=== PATIENT | female | born 1990 | race Caucasian/White ===

== ENCOUNTER 2020-10-21 09:45 | Inpatient (IN) ==
[2020-10-21] MEDS: Lactated Ringers 1000 ml BAG 1,000 ML IV SCH ×2 (10:13→10:47)
[2020-10-21] MEDS ORDERED: Buffered Lidocaine 1% SYRIN 1 ml INTRADERM ONE (10:31)
[2020-10-21 10:42] LABS: ABS Basophils 0.1 10^3/ul (0-0.2); ABS Eosinophils 0.4 10^3/ul (0-0.6); ABS Lymphocytes 2.2 10^3/ul (1.0-4.8); ABS Monocytes 0.7 10^3/ul (0-0.8); ABS Neutrophils 9.1 10^3/ul (1.5-7.7); Eosinophil % 3.1 %; Hematocrit 41 % (35-47); Hemoglobin 14.4 g/dL (12.0-16.0); Lymphocyte % 17.3 %; Mean Corpuscular HGB Conc 35 g/dL (31-36); Mean Corpuscular Hemoglobin 34 pg (27-31); Mean Corpuscular Volume 96 fL (80-97); Mean Platelet Volume 11.1 fL (7.4-10.4); Platelet Count 170 10^3/uL (150-450); Red Cell Distribution Width 13 % (10-15); White Blood Count 12.5 10^3/uL (3.5-10.8)
[2020-10-21 10:58] LABS: Albumin 3.6 g/dL (3.2-5.2); Calcium 9.2 mg/dL (8.6-10.3); EGFR African American 148.7 (>60); EGFR Non-African American 122.9 (>60); Globulin 3.6 g/dL (2-4); Total Bilirubin 0.4 mg/dL (0.2-1.0); Total Protein 7.2 g/dL (6.4-8.9)
[2020-10-21] MEDS ORDERED: OBEPIDURAL 250 ML EPIDURAL ONE (10:59)
[2020-10-21] MEDS ORDERED: Penicillin G Potassium IV 5,000,000 UNITS in NS 0.9% 100 ml BAG 100 ML IVPB ONE (11:00)
[2020-10-21] MEDS ORDERED: Penicillin G Potassium IV 3,000,000 UNITS in NS 0.9% 100 ml BAG 100 ML IVPB SCH ×2 (11:00→14:30)
[2020-10-21] MEDS ORDERED: Oxytocin in LR 20 UNITS/1,000 ML BAG IVPB ONE (11:59)
[2020-10-21 12:53] LABS: Urine Benzodiazepine Screen None Detected (None Detect); Urine Cannabinoids Screen None Detected (None Detect); Urine Opiates Screen None Detected (None Detect)
[2020-10-21] MEDS ORDERED: Lactated Ringers 1000 ml BAG 1,000 ML IV SCH (13:00)
[2020-10-21] MEDS ORDERED: Oxytocin in LR 20 UNITS/1,000 ML BAG IVPB SCH (13:00)
[2020-10-21] MEDS: Witch Hazel PAD JAR TOPICAL PRN (13:34)
[2020-10-21] MEDS: Dibucaine 1% OINT 28.35 GM TUBE PR PRN (13:34)
[2020-10-21] MEDS ORDERED: Lidocaine 1% VIAL 10 MG/ML VIAL ONE (15:09)
[2020-10-22 08:20] LABS: ABS Basophils 0.1 10^3/ul (0-0.2); ABS Eosinophils 0.3 10^3/ul (0-0.6); ABS Lymphocytes 2.8 10^3/ul (1.0-4.8); ABS Monocytes 0.8 10^3/ul (0-0.8); ABS Neutrophils 9.9 10^3/ul (1.5-7.7); Eosinophil % 2.2 %; Hematocrit 36 % (35-47); Hemoglobin 12.3 g/dL (12.0-16.0); Lymphocyte % 20.1 %; Mean Corpuscular HGB Conc 34 g/dL (31-36); Mean Corpuscular Hemoglobin 33 pg (27-31); Mean Corpuscular Volume 97 fL (80-97); Mean Platelet Volume 10.6 fL (7.4-10.4); Platelet Count 152 10^3/uL (150-450); Red Blood Count 3.68 10^6 /uL (3.70-4.87); Red Cell Distribution Width 13 % (10-15); White Blood Count 13.9 10^3/uL (3.5-10.8)
[2020-10-22] MEDS ORDERED: Measles, Mumps,Rubella VACC 0.5 ML/VIAL SUBCUT ONE (09:00)
[2020-10-22] MEDS: Witch Hazel PAD JAR TOPICAL PRN (17:00)
[2020-10-22] MEDS: Dibucaine 1% OINT 28.35 GM TUBE PR PRN (17:00)
[2020-10-23 08:53] VITALS: BP 130/95
== END 2020-10-23 12:30 | disposition home or self-care (01) | DRG 560 ==
LOC: MCHOBOUT 09:45 → MCHOB 10:03
PROVIDERS: ADMIT Midwife; ATTEND Midwife

== ENCOUNTER 2022-05-23 19:28 | Inpatient (IN) ==
[2022-05-23] MEDS ORDERED: Buffered Lidocaine 1% SYRIN 1 ml INTRADERM ONE (20:34)
[2022-05-23] MEDS ORDERED: Nalbuphine 10 MG/ML 1 ML VIAL IV PRN (20:34)
[2022-05-23] MEDS ORDERED: Lactated Ringers 1000 ml BAG 1,000 ML IV ONE (20:34)
[2022-05-23] MEDS ORDERED: Promethazine INJ(RESTRICTED) 25 MG/ML 1 ml VIAL IV PRN (20:34)
[2022-05-23] MEDS ORDERED: Oxytocin in LR 20,000 MILLI.UNIT/1,000 ML BAG IV SCH (20:45)
[2022-05-23] MEDS ORDERED: Lactated Ringers 1000 ml BAG 1,000 ML IV SCH (21:00)
[2022-05-23 21:18] LABS: ABS Eosinophils 0.4 10^3/ul (0-0.6); ABS Lymphocytes 2.6 10^3/ul (1.0-4.8); ABS Monocytes 0.7 10^3/ul (0-0.8); Eosinophil % 3.4 %; Hematocrit 37 % (35-47); Hemoglobin 13.2 g/dL (12.0-16.0); Lymphocyte % 24.3 %; Mean Corpuscular HGB Conc 35 g/dL (31-36); Mean Corpuscular Hemoglobin 33 pg (27-31); Mean Corpuscular Volume 93 fL (80-97); Mean Platelet Volume 10.1 fL (7.4-10.4); Platelet Count 191 10^3/uL (150-450); Red Blood Count 4.03 10^6 /uL (3.70-4.87); Red Cell Distribution Width 14 % (10-15); White Blood Count 10.8 10^3/uL (3.5-10.8)
[2022-05-23 21:40] LABS: Urine Benzodiazepine Screen None Detected (None Detect); Urine Opiates Screen None Detected (None Detect)
[2022-05-23] MEDS ORDERED: Lidocaine 1.5% EPI 1:200,000 30 ML SDV ONE ×2 (22:42)
[2022-05-23] MEDS ORDERED: OBEPIDURAL (200 ML) 200 ML EPIDURAL ONE (22:42)
[2022-05-24] MEDS ORDERED: Oxytocin 10 UNITS/ML 1 ML VIAL IM PRN (02:32)
[2022-05-24] MEDS ORDERED: Dibucaine 1% OINT 28.35 GM TUBE PR PRN (02:32)
[2022-05-24] MEDS ORDERED: Witch Hazel PAD JAR TOPICAL PRN (02:32)
[2022-05-24] MEDS ORDERED: Lactated Ringers 1000 ml BAG 1,000 ML IV SCH ×2 (03:00→06:00)
[2022-05-24] MEDS ORDERED: Lactated Ringers 1000 ml BAG 1,000 ML IV ONE (05:45)
[2022-05-24] MEDS ORDERED: OBEPIDURAL (200 ML) 200 ML EPIDURAL SCH (06:00)
[2022-05-24 12:44] LABS: ABS Basophils 0.1 10^3/ul (0-0.2); ABS Eosinophils 0.3 10^3/ul (0-0.6); ABS Lymphocytes 2.3 10^3/ul (1.0-4.8); ABS Monocytes 0.8 10^3/ul (0-0.8); ABS Neutrophils 9.7 10^3/ul (1.5-7.7); Eosinophil % 2.1 %; Hematocrit 36 % (35-47); Hemoglobin 12.5 g/dL (12.0-16.0); Lymphocyte % 17.6 %; Mean Corpuscular HGB Conc 34 g/dL (31-36); Mean Corpuscular Hemoglobin 32 pg (27-31); Mean Corpuscular Volume 93 fL (80-97); Platelet Count 175 10^3/uL (150-450); Red Blood Count 3.89 10^6 /uL (3.70-4.87); Red Cell Distribution Width 14 % (10-15); White Blood Count 13.2 10^3/uL (3.5-10.8)
[2022-05-25 09:29] VITALS: BP 120/84
== END 2022-05-25 09:00 | disposition home or self-care (01) | DRG 560 ==
LOC: MCHOBOUT 19:28 → MCHOB 20:05
PROVIDERS: ADMIT Registered Nurse; ATTEND Registered Nurse